=== PATIENT | male | born 1960 | race African-American/Black ===

== ENCOUNTER 2020-01-16 15:16 | Observation (INO) ==
[2020-01-16 17:55] LABS: Adenovirus Not Detected (Not Detect); Bordetella Pertussis Not Detected (Not Detect); Chlamydophila pneumoniae Not Detected (Not Detect); Coronavirus 229E Not Detected (Not Detect); Coronavirus HKU1 Not Detected (Not Detect); Coronavirus NL63 Not Detected (Not Detect); Coronavirus OC43 Not Detected (Not Detect); Human Metapneumovirus Not Detected (Not Detect); Human Rhinovirus/Enterovirus Not Detected (Not Detect); Influenza A Subtype 2009 H1 Not Detected (Not Detect); Influenza B Not Detected (Not Detect); Mycoplasma pneumoniae Not Detected (Not Detect); Parainfluenza Virus 1 Not Detected (Not Detect); Parainfluenza Virus 2 Not Detected (Not Detect); Parainfluenza Virus 3 Not Detected (Not Detect); Parainfluenza Virus 4 Not Detected (Not Detect); Respiratory Syncytial Virus Not Detected (Not Detect)
[2020-01-16] MEDS ORDERED: Naloxone 0.4 MG/ML INJ IVP PRN (19:20)
[2020-01-16] MEDS: *HR* Heparin 5,000 UNIT/ML VIAL SQ SCH (20:43)
[2020-01-17 01:58] LABS: INR 1.1; Prothrombin Time 12.1 Seconds (9.4-12.1)
[2020-01-17 01:59] LABS: Basophils % 0.5 %; Eosinophils # 0.1 K/mcL (0.0-0.6); Eosinophils % 3.4 %; Hematocrit 31.3 % (37.5-50.1); Hemoglobin 9.6 g/dL (12.9-16.9); Lymphocytes # 1.2 K/mcL (0.6-4.6); Mean Corpuscular HGB Conc 30.7 g/dL (31.6-35.5); Mean Corpuscular Hemoglobin 26.5 pg (28.0-33.3); Mean Corpuscular Volume 86.5 fL (83.0-100.0); Mean Platelet Volume 12.7 fL (9.4-12.4); Monocytes # 0.5 K/mcL (0.0-1.3); Monocytes % 13.3 %; Platelet Count 118 K/mcL (140-400); Red Blood Count 3.62 M/mcL (4.19-5.50); Red Cell Distribution Width 16.4 % (11.5-14.5); Segmented Neutrophils % 50.8 %; White Blood Count 3.8 K/mcL (4.3-11.1)
[2020-01-17 02:01] LABS: Activated Partial Thrombo Time 37.1 Seconds (26.0-36.0)
[2020-01-17 02:07] LABS: Albumin 3.3 g/dL (3.5-5.7); Albumin/Globulin Ratio 1.1 (1.1-2.2); Bilirubin,Total 0.4 mg/dL (0.3-1.0); Magnesium 1.9 mg/dL (1.6-2.6); Phosphorous 9.2 mg/dL (2.7-4.5); Potassium 3.9 mEq/L (3.5-5.1); Total Protein 6.3 g/dL (6.4-8.9)
[2020-01-17] MEDS: *HR* Heparin 5,000 UNIT/ML VIAL SQ SCH ×3 (05:31→20:20)
[2020-01-17] MEDS ORDERED: *HR* Heparin 10,000 UNIT/10 ML VIAL IV PRN (08:16)
[2020-01-17] MEDS ORDERED: 0.9 % Sodium Chloride 250 ML IVC PRN (08:16)
[2020-01-17] MEDS ORDERED: 0.9 % Sodium Chloride 1,000 ML PRIME SCH (08:30)
[2020-01-17 09:15] LABS: Hepatitis B Surface Antibody 14.38 mIU/mL
[2020-01-17 09:25] LABS: Hepatitis B Surface Antigen Nonreactive (Nonreactive)
[2020-01-17] MEDS: amLODIPine 5 MG TABLET PO SCH (15:20)
[2020-01-17] MEDS: cloNIDine HCL 0.1 MG TABLET PO SCH (20:18)
[2020-01-18] MEDS: *HR* Heparin 5,000 UNIT/ML VIAL SQ SCH ×3 (05:33→21:45)
[2020-01-18] MEDS: amLODIPine 5 MG TABLET PO SCH (07:39)
[2020-01-18] MEDS: cloNIDine HCL 0.1 MG TABLET PO SCH ×2 (07:39→21:45)
[2020-01-18 07:48] LABS: Potassium 4.4 mEq/L (3.5-5.1)
[2020-01-18 07:49] LABS: Calcium 7.9 mg/dL (8.6-10.3)
[2020-01-19 01:27] LABS: Immature Platelets 11.3 % (1.1-6.1)
[2020-01-19 01:30] LABS: Hematocrit 30.6 % (37.5-50.1); Hemoglobin 9.6 g/dL (12.9-16.9); Mean Corpuscular HGB Conc 31.4 g/dL (31.6-35.5); Mean Corpuscular Hemoglobin 27.8 pg (28.0-33.3); Mean Corpuscular Volume 88.7 fL (83.0-100.0); Mean Platelet Volume 13.7 fL (9.4-12.4); Red Blood Count 3.45 M/mcL (4.19-5.50); Red Cell Distribution Width 16.7 % (11.5-14.5); White Blood Count 4.6 K/mcL (4.3-11.1)
[2020-01-19 01:45] LABS: Calcium 7.5 mg/dL (8.6-10.3)
[2020-01-19] MEDS: *HR* Heparin 5,000 UNIT/ML VIAL SQ SCH (05:00)
[2020-01-19] MEDS ORDERED: 0.9 % Sodium Chloride 250 ML IVC PRN (07:40)
[2020-01-19] MEDS ORDERED: 0.9 % Sodium Chloride 1,000 ML PRIME SCH (07:45)
[2020-01-19] MEDS: cloNIDine HCL 0.1 MG TABLET PO SCH (10:59)
[2020-01-19] MEDS: amLODIPine 5 MG TABLET PO SCH (10:59)
[2020-01-19 11:05] VITALS: BP 146/66
== END 2020-01-19 12:27 | disposition home or self-care (01) ==
LOC: CDU → SUATTDRO 16:39 → 2ANU 17:58
PROVIDERS: ADMIT Internal Medicine; ATTEND Internal Medicine

== ENCOUNTER 2020-01-22 16:09 | Inpatient (IN) ==
[2020-01-22] MEDS ORDERED: Naloxone 0.4 MG/ML INJ IVP PRN (20:54)
[2020-01-22 21:54] LABS: Adenovirus Not Detected (Not Detect); Bordetella Pertussis Not Detected (Not Detect); Chlamydophila pneumoniae Not Detected (Not Detect); Coronavirus 229E Not Detected (Not Detect); Coronavirus HKU1 Not Detected (Not Detect); Coronavirus NL63 Not Detected (Not Detect); Coronavirus OC43 Not Detected (Not Detect); Human Metapneumovirus Not Detected (Not Detect); Human Rhinovirus/Enterovirus Not Detected (Not Detect); Influenza A Subtype 2009 H1 Not Detected (Not Detect); Influenza B Not Detected (Not Detect); Mycoplasma pneumoniae Not Detected (Not Detect); Parainfluenza Virus 1 Not Detected (Not Detect); Parainfluenza Virus 2 Not Detected (Not Detect); Parainfluenza Virus 3 Not Detected (Not Detect); Parainfluenza Virus 4 Not Detected (Not Detect); Respiratory Syncytial Virus Not Detected (Not Detect); SARS-CoV-2 Not Detected (Not Detect)
[2020-01-23 00:55] LABS: Basophils % 0.5 %; Mean Platelet Volume 13.8 fL (9.4-12.4)
[2020-01-23 00:57] LABS: Eosinophils # 0.1 K/mcL (0.0-0.6); Eosinophils % 2.6 %; Hemoglobin 8.7 g/dL (12.9-16.9); Immature Platelets 11.5 % (1.1-6.1); Lymphocytes # 1.2 K/mcL (0.6-4.6); Lymphocytes % 29.8 %; Mean Corpuscular HGB Conc 31.1 g/dL (31.6-35.5); Mean Corpuscular Hemoglobin 26.9 pg (28.0-33.3); Mean Corpuscular Volume 86.4 fL (83.0-100.0); Monocytes # 0.4 K/mcL (0.0-1.3); Monocytes % 10.3 %; Neutrophils # 2.2 K/mcL (1.6-8.9); Red Blood Count 3.24 M/mcL (4.19-5.50); Red Cell Distribution Width 16.6 % (11.5-14.5); Segmented Neutrophils % 56.8 %; White Blood Count 3.9 K/mcL (4.3-11.1)
[2020-01-23 01:08] LABS: Platelet Count 85 K/mcL (140-400)
[2020-01-23 01:10] LABS: Albumin 3.5 g/dL (3.5-5.7); Albumin/Globulin Ratio 1.2 (1.1-2.2); Bilirubin,Total 0.6 mg/dL (0.3-1.0); Prothrombin Time 11.6 Seconds (9.4-12.1); Total Protein 6.5 g/dL (6.4-8.9)
[2020-01-23 01:12] LABS: Activated Partial Thrombo Time 42.3 Seconds (26.0-36.0)
[2020-01-23] MEDS: cloNIDine HCL 0.1 MG TABLET PO SCH ×3 (02:47→20:09)
[2020-01-23] MEDS ORDERED: *HR* Dextrose 50 % in Water (Vial) 50 ML VIAL IVP ONE (03:00)
[2020-01-23] MEDS ORDERED: Insulin Human Regular 10 UNIT in 0.9 % Sodium Chloride 10 ML IV ONE (03:30)
[2020-01-23] MEDS: *HR* Heparin 5,000 UNIT/ML VIAL SQ SCH ×3 (04:12→20:09)
[2020-01-23 07:12] LABS: Hematocrit 29.3 % (37.5-50.1); Hemoglobin 9.1 g/dL (12.9-16.9); Mean Corpuscular HGB Conc 31.1 g/dL (31.6-35.5); Mean Corpuscular Hemoglobin 26.7 pg (28.0-33.3); Mean Corpuscular Volume 85.9 fL (83.0-100.0); Platelet Count 111 K/mcL (140-400); Red Blood Count 3.41 M/mcL (4.19-5.50); Red Cell Distribution Width 17.1 % (11.5-14.5); White Blood Count 4.7 K/mcL (4.3-11.1)
[2020-01-23] MEDS ORDERED: 0.9 % Sodium Chloride 250 ML IVC PRN (07:31)
[2020-01-23] MEDS ORDERED: *HR* Heparin 10,000 UNIT/10 ML VIAL IV PRN (07:31)
[2020-01-23] MEDS ORDERED: 0.9 % Sodium Chloride 1,000 ML PRIME SCH (07:45)
[2020-01-23 08:27] LABS: Lymphocytes % 21.1 %; Neutrophils # 2.9 K/mcL (1.6-8.9); Segmented Neutrophils % 62.6 %
[2020-01-23 08:28] LABS: Basophils % 0.6 %; Eosinophils # 0.2 K/mcL (0.0-0.6); Eosinophils % 3.2 %; Monocytes # 0.6 K/mcL (0.0-1.3); Monocytes % 12.3 %
[2020-01-23] MEDS ORDERED: amLODIPine 5 MG TABLET PO SCH (09:00)
[2020-01-23 10:38] LABS: Albumin 3.3 g/dL (3.5-5.7); Albumin/Globulin Ratio 1.1 (1.1-2.2); Bilirubin,Total 0.5 mg/dL (0.3-1.0); Calcium 8.1 mg/dL (8.6-10.3); Globulin 2.9 g/dL (2.4-3.5); Potassium 4.8 mEq/L (3.5-5.1); Total Protein 6.2 g/dL (6.4-8.9)
[2020-01-23] MEDS ORDERED: *HR* Labetalol 20 MG/4 ML SYRINGE IVP PRN (11:44)
[2020-01-23] MEDS ORDERED: *HR* Dextrose 50 % in Water (Vial) 50 ML VIAL IVP PRN (11:47)
[2020-01-23] MEDS ORDERED: Dextrose Gel 15 GM/37.5 ML TUBE PO PRN ×2 (11:47)
[2020-01-23] MEDS ORDERED: D5% in Water 1,000 ML IVC PRN (11:47)
[2020-01-23] MEDS: Insulin LISPRO 300 UNITS/3 ML VIAL SQ SCH (17:30)
[2020-01-24 03:14] LABS: Calcium 7.8 mg/dL (8.6-10.3); Potassium 4.6 mEq/L (3.5-5.1)
[2020-01-24] MEDS: *HR* Heparin 5,000 UNIT/ML VIAL SQ SCH (05:29)
[2020-01-24] MEDS: Insulin LISPRO 300 UNITS/3 ML VIAL SQ SCH (08:48)
[2020-01-24] MEDS: cloNIDine HCL 0.1 MG TABLET PO SCH (08:53)
[2020-01-24] MEDS ORDERED: amLODIPine 5 MG TABLET PO SCH (09:00)
[2020-01-24 11:31] VITALS: BP 171/92
== END 2020-01-24 13:36 | disposition left against medical advice (07) | DRG 391 ==
LOC: 2ANU → SUATTDRO 20:13
PROVIDERS: ADMIT Internal Medicine; ATTEND Internal Medicine